=== PATIENT | female | born 1950 ===

== ENCOUNTER 2020-11-14 10:16 | Outpatient (CLI) | payer OTHER | END 2020-11-14 10:24 | disposition home or self-care (01) | LOC: NUCLEAR 10:16 | PROVIDERS: ATTEND Internal Medicine Nephrology | DX: N18.4 Chronic kidney disease, stage 4 (severe) (principal) | CPT/HCPCS: 78707; A9539 ==

== ENCOUNTER 2021-02-06 09:00 | Outpatient (CLI) | payer OTHER | END 2021-02-06 09:15 | disposition home or self-care (01) | LOC: PPH VACUNA 09:00 | PROVIDERS: ATTEND Emergency Medicine Pediatric Emergency Medicine | DX: Z23 Encounter for immunization (principal) ==

== ENCOUNTER 2022-06-23 09:39 | Emergency (ER) | payer OTHER ==
[~2022-06-23] VITALS: Ht 144.8 cm; Wt 59.0 kg
[2022-06-23] MEDS ORDERED: ATACAND32 MG (09:59)
[2022-06-23] MEDS ORDERED: VERELAN PM200 MG (09:59)
[2022-06-23] MEDS ORDERED: LANTUS SOL100 UNIT/1 (10:00)
== END 2022-06-23 13:29 | disposition home or self-care (01) ==
LOC: ER 09:39
DX: S00.01XA Abrasion of scalp, initial encounter (principal); W55.01XA Bitten by cat, initial encounter; Y93.89 Activity, other specified; Y92.89 Other specified places as the place of occurrence of the external cause; Y99.9 Unspecified external cause status; E11.65 Type 2 diabetes mellitus with hyperglycemia; Z79.4 Long term (current) use of insulin; Z91.041 Radiographic dye allergy status